=== PATIENT | female | born 2000 | race African-American/Black ===

== ENCOUNTER 2020-10-23 10:43 | Outpatient (CLI) | payer BC, OTHER | END 2020-10-23 10:44 | disposition home or self-care (01) | LOC: MADRAD 10:43 | PROVIDERS: ATTEND Family Medicine | DX: M25.561 Pain in right knee (principal); M25.562 Pain in left knee ==

== ENCOUNTER 2021-07-23 13:57 | Outpatient (CLI) | payer BC, OTHER | END 2021-07-23 13:58 | disposition home or self-care (01) | LOC: MADRAD 13:57 | PROVIDERS: ATTEND Family Medicine | DX: M54.41 Lumbago with sciatica, right side (principal); M54.42 Lumbago with sciatica, left side; Q76.49 Other congenital malformations of spine, not associated with scoliosis | CPT/HCPCS: 72100 ==

== ENCOUNTER 2021-09-07 12:12 | Emergency (ER) | payer BC, OTHER | END 2021-09-07 13:19 | disposition home or self-care (01) | LOC: MADERS 12:12 | DX: S63.501A Unspecified sprain of right wrist, initial encounter (principal); X58.XXXA Exposure to other specified factors, initial encounter ==

== ENCOUNTER 2021-10-01 13:26 | Emergency (ER) | payer BC, OTHER | END 2021-10-01 14:41 | disposition home or self-care (01) | LOC: MADERS 13:26 | DX: M72.2 Plantar fascial fibromatosis (principal) ==

== ENCOUNTER 2021-10-04 18:07 | Emergency (ER) | payer BC, OTHER ==
[2021-10-04] MEDS ORDERED: Ibuprofen 800 MG TAB ONE (18:51)
== END 2021-10-04 19:11 | disposition home or self-care (01) ==
LOC: MADERS 18:07
DX: S93.491A Sprain of other ligament of right ankle, initial encounter (principal); X58.XXXA Exposure to other specified factors, initial encounter
CPT/HCPCS: 99283

== ENCOUNTER 2021-10-08 15:09 | Outpatient (CLI) | payer BC, OTHER | END 2021-10-08 15:10 | disposition home or self-care (01) | LOC: MADRAD 15:09 | PROVIDERS: ATTEND Family Medicine | DX: M79.89 Other specified soft tissue disorders (principal) ==

== ENCOUNTER 2024-05-02 18:25 | Emergency (ER) | payer BC, OTHER ==
[2024-05-02] MEDS ORDERED: Sodium Chloride 0.9% 1,000 ML ONE (18:45)
[2024-05-02] MEDS ORDERED: Ondansetron ODT 4 MG TAB ONE (18:45)
[2024-05-02] MEDS ORDERED: Acetaminophen 500 MG TAB ONE (18:45)
[2024-05-02 19:34] LABS: Bilirubin Negative (Negative); Blood, Urine Negative (Negative); Clarity Clear (Clear); Glucose, Urine (Dipstick) Negative (Negative); Ketone, Urine 15 mg/dL (Negative); Leukocyte Negative (Negative); Nitrite Negative (Negative); Protein, Urine (Dipstick) 30 mg/dL (Neg-Trace); Urobilinogen 0.2 mg/dL (Less than 2); pH, Urine 6.5 (5.0-9.0)
[2024-05-02 19:46] LABS: Bacteria/HPF Rare-Few HPF (None Seen); CAUTI Indications for Culture Fever or rigors; Mucous/LPF 2+ LPF (<2+); RBC/HPF None Seen HPF (0-3); Urine Culture Reflex No No; WBC/HPF 0-3 HPF (0-3)
== END 2024-05-02 22:43 | disposition home or self-care (01) ==
LOC: MADERS 18:25
DX: K52.9 Noninfective gastroenteritis and colitis, unspecified (principal)
CPT/HCPCS: 81001; 87428; 96360; 96361; J7030; Q0162